=== PATIENT | male | born 1975 | race African-American/Black ===

== ENCOUNTER 2017-11-19 22:39 | Emergency (ER) | payer OTHER ==
[~2017-11-19] VITALS: Ht 180.3 cm; Wt 156.5 kg
[~2017-11-19 22:39] MED LIST: LORADAMED10 MG PO; METO50TA27 PO; OMEP40CA PO; ZANTAC300 MG PO
[2017-11-19 23:31] LABS: PLATELET COUNT 200 K/uL (142-355)
[2017-11-19 23:35] LABS: POTASSIUM 3.4 mmol/L (3.6-5.2); SODIUM 136 mmol/L (136-145)
[2017-11-20 01:28] VITALS: BP 150/87; TEMP 98.2
== END 2017-11-20 01:31 | disposition home or self-care (01) ==
LOC: ED 22:39
PROVIDERS: Specialist
DX: M79.1 Myalgia (principal); R07.89 Other chest pain
CPT/HCPCS: 36415; 80053; 82550; 83880; 84484; 85027; 85379; 85610; 85730; 93005; 96372; 99283; J1885

== ENCOUNTER 2019-01-22 12:15 | Emergency (ER) | payer OTHER ==
[~2019-01-22] VITALS: Ht 180.3 cm; Wt 172.4 kg
[2019-01-22 12:40] LABS: PLATELET COUNT 197 K/uL (142-355)
[2019-01-22 12:51] LABS: POTASSIUM 3.5 mmol/L (3.6-5.2); SODIUM 138 mmol/L (136-145)
[2019-01-22 13:50] VITALS: BP 130/90; TEMP 98.3
== END 2019-01-22 14:01 | disposition home or self-care (01) ==
LOC: ED 12:15
PROVIDERS: Family Medicine
DX: R07.89 Other chest pain (principal); E66.8 Other obesity
CPT/HCPCS: 36415; 80053; 82550; 82553; 83880; 84484; 85027; 85379; 93005; 99284

== ENCOUNTER 2019-02-15 17:39 | Emergency (ER) | payer OTHER ==
[~2019-02-15] VITALS: Ht 180.3 cm; Wt 172.4 kg
[2019-02-15 19:34] LABS: PLATELET COUNT 187 K/uL (142-355)
[2019-02-15 19:44] LABS: POTASSIUM 3.6 mmol/L (3.6-5.2); SODIUM 140 mmol/L (136-145)
[2019-02-15 21:30] VITALS: BP 149/92; TEMP 98.2
== END 2019-02-15 21:48 | disposition home or self-care (01) ==
LOC: ED 17:39
PROVIDERS: Family Medicine
DX: R10.9 Unspecified abdominal pain (principal); R11.0 Nausea; K59.00 Constipation, unspecified
CPT/HCPCS: 36415; 74022; 80053; 82550; 84484; 85027; 93005; 99283

== ENCOUNTER 2019-02-21 20:34 | Emergency (ER) | payer OTHER ==
[~2019-02-21] VITALS: Ht 180.3 cm; Wt 172.4 kg
[2019-02-21 22:00] LABS: PLATELET COUNT 179 K/uL (142-355)
[2019-02-21 22:14] LABS: POTASSIUM 3.8 mmol/L (3.6-5.2); SODIUM 138 mmol/L (136-145)
[2019-02-21 23:05] VITALS: BP 135/82; TEMP 97.7
== END 2019-02-21 23:05 | disposition home or self-care (01) ==
LOC: ED 20:34
PROVIDERS: Emergency Medicine
DX: R07.9 Chest pain, unspecified (principal); E66.01 Morbid (severe) obesity due to excess calories; I45.10 Unspecified right bundle-branch block
CPT/HCPCS: 36415; 80053; 82150; 82550; 83690; 84484; 85027; 93005; 99283

== ENCOUNTER 2019-10-06 11:45 | Outpatient (CLI) | payer OTHER | END 2019-10-06 11:52 | disposition short-term general hospital (02) | LOC: AMB 11:45 | DX: R07.9 Chest pain, unspecified (principal); R11.0 Nausea; R42 Dizziness and giddiness | CPT/HCPCS: A0425; A0427 ==

== ENCOUNTER 2019-10-06 11:50 | Emergency (ER) | payer OTHER ==
[~2019-10-06] VITALS: Ht 180.3 cm; Wt 172.4 kg
[2019-10-06 12:24] LABS: PLATELET COUNT 206 K/uL (142-355)
[2019-10-06 12:42] LABS: POTASSIUM 3.5 mmol/L (3.6-5.2); SODIUM 138 mmol/L (136-145)
[2019-10-06 21:54] VITALS: BP 131/90; TEMP 98.8
== END 2019-10-06 21:54 | disposition home or self-care (01) ==
LOC: ED 11:50
PROVIDERS: Student in an Organized Health Care Education/Training Program
DX: R07.89 Other chest pain (principal); K21.9 Gastro-esophageal reflux disease without esophagitis; E66.01 Morbid (severe) obesity due to excess calories
CPT/HCPCS: 80048; 83735; 83880; 84484; 85027; 85610; 85730; 93005; 96374; 99284; A9540; A9567; J2270

== ENCOUNTER 2019-11-02 19:51 | Emergency (ER) | payer OTHER ==
[~2019-11-02] VITALS: Ht 180.3 cm; Wt 172.4 kg
[2019-11-02 20:23] LABS: PLATELET COUNT 193 K/uL (142-355)
[2019-11-02 20:29] LABS: POTASSIUM 3.3 mmol/L (3.6-5.2); SODIUM 140 mmol/L (136-145)
[2019-11-03 00:55] VITALS: BP 127/73; TEMP 97.8
== END 2019-11-03 00:55 | disposition home or self-care (01) ==
LOC: ED 19:51
PROVIDERS: Emergency Medicine
DX: R07.89 Other chest pain (principal); I45.10 Unspecified right bundle-branch block
CPT/HCPCS: 36415; 80053; 82550; 82553; 84484; 85027; 85379; 93005; 99284

== ENCOUNTER 2019-11-04 12:15 | Emergency (ER) | payer OTHER ==
[~2019-11-04] VITALS: Ht 180.3 cm; Wt 176.9 kg
[2019-11-04 12:23] VITALS: TEMP 98.1
[2019-11-04 13:04] LABS: PLATELET COUNT 187 K/uL (142-355)
[2019-11-04 13:10] LABS: POTASSIUM 3.5 mmol/L (3.6-5.2); SODIUM 139 mmol/L (136-145)
[2019-11-04 16:09] VITALS: BP 123/77
== END 2019-11-04 18:11 | disposition home or self-care (01) ==
LOC: ED 12:15
PROVIDERS: Family Medicine
DX: R07.89 Other chest pain (principal); F41.8 Other specified anxiety disorders; E87.6 Hypokalemia
CPT/HCPCS: 80053; 82550; 84484; 85027; 85610; 85730; 93005; 99284; J2060

== ENCOUNTER 2019-11-08 20:32 | Emergency (ER) | payer OTHER ==
[~2019-11-08] VITALS: Ht 180.3 cm; Wt 176.9 kg
[2019-11-08 21:17] LABS: PLATELET COUNT 205 K/uL (142-355)
[2019-11-08 21:25] LABS: POTASSIUM 3.4 mmol/L (3.6-5.2); SODIUM 139 mmol/L (136-145)
[2019-11-08 22:09] VITALS: BP 154/86; TEMP 97.7
== END 2019-11-08 22:10 | disposition home or self-care (01) ==
LOC: ED 20:32
PROVIDERS: Student in an Organized Health Care Education/Training Program
DX: R07.89 Other chest pain (principal); F41.8 Other specified anxiety disorders
CPT/HCPCS: 36415; 80048; 83735; 84484; 85027; 93005; 96374; 99284; J1885

== ENCOUNTER 2019-11-10 21:41 | Emergency (ER) | payer OTHER ==
[~2019-11-10] VITALS: Ht 180.3 cm; Wt 176.9 kg
[2019-11-10 22:30] VITALS: TEMP 98.1
[2019-11-10 23:15] LABS: PLATELET COUNT 188 K/uL (142-355)
[2019-11-10 23:16] LABS: POTASSIUM 3.6 mmol/L (3.6-5.2); SODIUM 138 mmol/L (136-145)
[2019-11-11 00:17] VITALS: BP 126/80
== END 2019-11-11 00:20 | disposition home or self-care (01) ==
LOC: ED 21:41
PROVIDERS: Emergency Medicine
DX: R07.89 Other chest pain (principal); F41.8 Other specified anxiety disorders
CPT/HCPCS: 36415; 80053; 82550; 83690; 84484; 85027; 93005; 99283

== ENCOUNTER 2019-11-11 13:54 | Observation (INO) | payer OTHER ==
[~2019-11-11] VITALS: Ht 180.3 cm; Wt 176.9 kg
[2019-11-11 14:08] VITALS: BP 151/103; TEMP 97.9
[2019-11-11 14:55] LABS: PLATELET COUNT 212 K/uL (142-355)
[2019-11-11 15:53] LABS: POTASSIUM 3.5 mmol/L (3.6-5.2); SODIUM 136 mmol/L (136-145)
[2019-11-11 20:00] VITALS: BP 144/85; TEMP 98.2
[2019-11-11 20:03] VITALS: BP 146/94; TEMP 97.5; Ht 180.3 cm; Wt 176.9 kg
--- NOTE | 2019-11-11 20:36 | NUR ---
11/11/19 PT ASSESSMENT COMPLETED ALERT ORIENTED.PT STATES HE IS HAVING SOME PRESSURE IN CHEST HE STATED THIS HAS BEEN GOING ON FOR A MONTH OR SO.HE STATES IT COMES AND GOES.EKG OBTAINED SHOWED SINUS RHYTUM.MEDICATIONS GIVEN NITRO PATCH AND METOPROLOL 50 MH GIVEN.PT REFUSED NITRO TABLET.ER PHYSICAN DR. VIGIL NOTIFED OF PATIENT HAVING CHHEST PAIN AND THAT EKG SHOWED SINUS RHYTUM. NO NEW ORDERS RECEIVED.PT GIVEN SOME CRACKERS AND JUICE TOLERATING WELL.CALL LIGHT WITHIN REACH.
[2019-11-12] VITALS: BP 107/57; TEMP 97.6
[2019-11-12 04:00] VITALS: BP 112/68; TEMP 97.8
[2019-11-12 04:42] LABS: PLATELET COUNT 197 K/uL (142-355)
[2019-11-12 05:31] LABS: POTASSIUM 3.9 mmol/L (3.6-5.2)
--- NOTE | 2019-11-12 06:01 | NUR ---
Patient was admitted with Chest Pain and is on a 2 Gm Na Diet plan and is 5'11" at 389 and is a 44 YOM and IBW = 172+/-10% (155-189), kcal for IBW = 2000 x 25, x 30 = 2200, x 35 = 2545, x 40 = 2900, protein needs x .8 to 1.5 = 58 to 109 grams per day and fluis for weight at 389 = 4420 to 5300, BMI = 54 andis higher than the highest stage of obesity and is 226% IBW, and dx. included hypokalemia, hypocalecemia and labs reveal WBC, ALB, D-DIMER, MPV AND ALL ABNORMAL SEE EMR FOR MORE DETAILS, GIVEN 1 DOSE OF NITRO IN ER AND ADMITTED A PATIENT TO THE FLOOR, TACHY SINUS AND DX. INCLUDED DEHYDRATION, GASTRITIS, HTN, MALNOURISHED, MORBID OBESITY, MUSCOLOSKELETAL PAIN, GERD AND ANXIETY. Recommendations: 1-To work with PT to help with movement 2-Healthier food choices and to add NCS High Fiber to 2 gm Na. 3-Encourage HBV Protein Choices which dietary will add to the trays with meals. 4-Food Preferences will be honored 5-Increase fluids as tolerated d/t dehydration
[2019-11-12 08:03] VITALS: BP 109/71; TEMP 97.3
== END 2019-11-12 16:30 | disposition home or self-care (01) ==
LOC: ED 13:54 → MED/SURG 17:00
PROVIDERS: Family Medicine; ADMIT Family Medicine
DX: R07.89 Other chest pain (principal); I10 Essential (primary) hypertension; K21.9 Gastro-esophageal reflux disease without esophagitis; R73.9 Hyperglycemia, unspecified; I49.8 Other specified cardiac arrhythmias; E66.2 Morbid (severe) obesity with alveolar hypoventilation
CPT/HCPCS: 36415; 80053; 80061; 80307; 81000; 82550; 82948; 83036; 83735; 83880; 84443; 84484; 85027; 85379; 93005; 99220; 99284; G0378

== ENCOUNTER 2019-11-12 22:23 | Emergency (ER) | payer OTHER ==
[~2019-11-12] VITALS: Ht 180.3 cm; Wt 176.9 kg
[2019-11-12 22:35] VITALS: BP 129/85; TEMP 98.2
== END 2019-11-12 22:35 | disposition home or self-care (01) ==
LOC: ED 22:23
DX: Z01.30 Encounter for examination of blood pressure without abnormal findings (principal); F17.210 Nicotine dependence, cigarettes, uncomplicated
CPT/HCPCS: 99281

== ENCOUNTER 2019-11-14 11:15 | Emergency (ER) | payer OTHER ==
[~2019-11-14] VITALS: Ht 180.3 cm; Wt 173.7 kg
[2019-11-14 12:37] LABS: PLATELET COUNT 189 K/uL (142-355)
[2019-11-14 12:41] LABS: POTASSIUM 4.1 mmol/L (3.6-5.2); SODIUM 139 mmol/L (136-145)
[2019-11-14 13:01] LABS: PARTIAL THROMBOPLASTIN TIME 26.1 SECONDS (24.5-33.6)
[2019-11-14 15:19] VITALS: BP 120/59; TEMP 97.7
== END 2019-11-14 15:20 | disposition home or self-care (01) ==
LOC: ED 11:15
PROVIDERS: Student in an Organized Health Care Education/Training Program
DX: R07.89 Other chest pain (principal)
CPT/HCPCS: 80048; 83735; 83880; 84484; 85027; 85610; 85730; 93005; 99284

== ENCOUNTER 2019-11-14 19:31 | Observation (INO) | payer OTHER ==
[2019-11-14] VITALS (10 sets, daily range): BP systolic 108–163; BP diastolic 59–91; TEMP 97.7
[~2019-11-14] VITALS: Ht 180.3 cm; Wt 173.3 kg
[2019-11-15] VITALS (8 sets, daily range): BP systolic 126–158; BP diastolic 72–102; TEMP 97.9–98.7; Ht 180.3 cm; Wt 173.3 kg
[2019-11-15 17:26] LABS: PARTIAL THROMBOPLASTIN TIME 28.2 SECONDS (24.5-33.6)
== END 2019-11-15 13:06 | disposition home or self-care (01) ==
LOC: ED 19:31 → MED/SURG 11-15 01:44
PROVIDERS: Family Medicine; ADMIT Emergency Medicine
DX: R07.89 Other chest pain (principal); I10 Essential (primary) hypertension; E66.01 Morbid (severe) obesity due to excess calories; F41.8 Other specified anxiety disorders
CPT/HCPCS: 36415; 80076; 80307; 80320; 80329; 81000; 82550; 83690; 84484; 85610; 85730; 86318; 93005; 99220; 99284; G0378

== ENCOUNTER 2019-12-16 21:37 | Emergency (ER) | payer OTHER ==
[~2019-12-16] VITALS: Ht 180.3 cm; Wt 163.3 kg
[2019-12-16 23:05] LABS: PLATELET COUNT 142 K/uL (142-355)
[2019-12-16 23:12] LABS: POTASSIUM 3.4 mmol/L (3.6-5.2)
[2019-12-17 01:10] VITALS: BP 119/69; TEMP 98.6
== END 2019-12-17 01:10 | disposition home or self-care (01) ==
LOC: ED 21:37
PROVIDERS: Family Medicine
DX: F41.8 Other specified anxiety disorders (principal); E87.6 Hypokalemia; R06.4 Hyperventilation; R00.1 Bradycardia, unspecified
CPT/HCPCS: 36415; 80053; 81000; 85027; 99283

== ENCOUNTER 2019-12-31 20:09 | Emergency (ER) | payer OTHER ==
[~2019-12-31] VITALS: Ht 180.3 cm; Wt 145.2 kg
[2019-12-31] MEDS ORDERED: TERAZOSIN2 MG PO (20:30)
[2019-12-31] MEDS ORDERED: ALPR0.5T24 PO (20:30)
[2019-12-31 21:11] LABS: PLATELET COUNT 120 K/uL (142-355)
[2019-12-31 21:19] LABS: POTASSIUM 3.3 mmol/L (3.6-5.2); SODIUM 138 mmol/L (136-145)
[2019-12-31 21:58] VITALS: BP 128/80; TEMP 97.5
== END 2019-12-31 21:58 | disposition home or self-care (01) ==
LOC: ED 20:09
PROVIDERS: Emergency Medicine
DX: E66.01 Morbid (severe) obesity due to excess calories (principal); R07.89 Other chest pain; F41.8 Other specified anxiety disorders
CPT/HCPCS: 80053; 82550; 84484; 85027; 93005; 99283

== ENCOUNTER 2020-05-06 11:45 | Emergency (ER) | payer OTHER ==
[~2020-05-06] VITALS: Ht 180.3 cm; Wt 171.2 kg
[~2020-05-06 11:45] MED LIST changes: +ALPR0.5T24 PO; +TERAZOSIN2 MG PO
[2020-05-06 12:36] LABS: PLATELET COUNT 173 K/uL (142-355)
[2020-05-06 12:45] LABS: POTASSIUM 3.8 mmol/L (3.6-5.2); SODIUM 140 mmol/L (136-145)
[2020-05-06 12:53] LABS: PARTIAL THROMBOPLASTIN TIME 25.9 SECONDS (24.5-33.6)
[2020-05-06 13:11] VITALS: BP 158/87; TEMP 98.4
== END 2020-05-06 13:24 | disposition home or self-care (01) ==
LOC: ED 11:45
PROVIDERS: Hospitalist
DX: R07.89 Other chest pain (principal); Z03.818 Encounter for observation for suspected exposure to other biological agents ruled out
CPT/HCPCS: 36415; 80053; 82550; 83880; 84484; 85027; 85610; 85730; 87502; 87635; 87651; 93005; 96374; 99284; G2023; J1885; J2405; U00003

== ENCOUNTER 2020-05-19 13:07 | Emergency (ER) | payer OTHER ==
[~2020-05-19] VITALS: Ht 180.3 cm; Wt 171.0 kg
[2020-05-19 13:23] VITALS: TEMP 99.1
[2020-05-19 15:03] LABS: POTASSIUM 3.8 mmol/L (3.6-5.2); SODIUM 140 mmol/L (136-145)
[2020-05-19 16:18] VITALS: BP 161/87
== END 2020-05-19 16:18 | disposition home or self-care (01) ==
LOC: ED 13:07
PROVIDERS: General Practice
DX: R00.2 Palpitations (principal)
CPT/HCPCS: 36415; 80048; 84484; 93005; 99283

== ENCOUNTER 2020-06-05 14:09 | Emergency (ER) | payer OTHER ==
[~2020-06-05] VITALS: Ht 180.3 cm; Wt 171.0 kg
[2020-06-05 14:15] VITALS: TEMP 98.9
[2020-06-05 15:29] LABS: PLATELET COUNT 175 K/uL (142-355)
[2020-06-05 15:35] LABS: POTASSIUM 3.9 mmol/L (3.6-5.2); SODIUM 137 mmol/L (136-145)
[2020-06-05 18:17] VITALS: BP 138/78
== END 2020-06-05 18:17 | disposition home or self-care (01) ==
LOC: ED 14:09
PROVIDERS: Family Medicine
DX: K21.9 Gastro-esophageal reflux disease without esophagitis (principal); R07.89 Other chest pain; M94.0 Chondrocostal junction syndrome [Tietze]
CPT/HCPCS: 80053; 81000; 82550; 82728; 84484; 85027; 93005; 96374; 99284; J3490

== ENCOUNTER 2020-06-13 13:14 | Emergency (ER) | payer OTHER ==
[~2020-06-13] VITALS: Ht 180.3 cm; Wt 171.0 kg
[2020-06-13 13:57] LABS: PLATELET COUNT 175 K/uL (142-355)
[2020-06-13 14:17] LABS: POTASSIUM 3.6 mmol/L (3.6-5.2); SODIUM 136 mmol/L (136-145)
[2020-06-13 17:47] VITALS: BP 146/93; TEMP 98.9
== END 2020-06-13 17:47 | disposition home or self-care (01) ==
LOC: ED 13:14
PROVIDERS: Emergency Medicine
DX: R07.89 Other chest pain (principal)
CPT/HCPCS: 80053; 82550; 82553; 84484; 85027; 85379; 93005; 99284

== ENCOUNTER 2020-06-15 08:25 | Outpatient (CLI) | payer OTHER | END 2020-06-15 23:00 | disposition home or self-care (01) | LOC: NM 08:25 | DX: R10.11 Right upper quadrant pain (principal); R10.84 Generalized abdominal pain; R11.0 Nausea; R11.10 Vomiting, unspecified; F33.1 Major depressive disorder, recurrent, moderate; F41.1 Generalized anxiety disorder | CPT/HCPCS: A9537 ==

== ENCOUNTER 2020-06-18 12:15 | Emergency (ER) | payer OTHER ==
[~2020-06-18] VITALS: Ht 180.3 cm; Wt 163.3 kg
[2020-06-18 13:06] LABS: PLATELET COUNT 159 K/uL (142-355)
[2020-06-18 13:09] LABS: POTASSIUM 3.7 mmol/L (3.6-5.2); SODIUM 139 mmol/L (136-145)
[2020-06-18 13:50] VITALS: BP 153/89; TEMP 98.7
== END 2020-06-18 13:50 | disposition home or self-care (01) ==
LOC: ED 12:15
PROVIDERS: Family Medicine
DX: I10 Essential (primary) hypertension (principal)
CPT/HCPCS: 80053; 82550; 82553; 83605; 83880; 84484; 85027; 93005; 99284

== ENCOUNTER 2020-07-24 19:25 | Emergency (ER) | payer OTHER ==
[~2020-07-24] VITALS: Ht 180.3 cm; Wt 158.8 kg
[2020-07-24 20:36] LABS: PLATELET COUNT 146 K/uL (142-355)
[2020-07-24 20:49] LABS: POTASSIUM 3.2 mmol/L (3.6-5.2); SODIUM 132 mmol/L (136-145)
[2020-07-25] MEDS ORDERED: DICYCLOMINE HYD10 MG PO (02:53)
[2020-07-25] MEDS ORDERED: POT CHLORIDE10 MEQ PO (02:55)
[2020-07-25] MEDS ORDERED: CYCL10TA35 PO (02:55)
[2020-07-25] MEDS ORDERED: CLOP75TA2 PO (02:56)
[2020-07-25] MEDS ORDERED: PAXIL20 MG PO (02:56)
[2020-07-25 03:30] VITALS: BP 118/69; TEMP 97.9
== END 2020-07-25 06:40 | disposition home or self-care (01) ==
LOC: ED 19:25
PROVIDERS: Emergency Medicine Emergency Medical Services
DX: R00.2 Palpitations (principal); E87.6 Hypokalemia; F32.9 Major depressive disorder, single episode, unspecified
CPT/HCPCS: 36415; 80053; 80307; 80320; 80329; 81000; 84443; 84484; 85027; 93005; 96360; 96375; 99285; J2060

== ENCOUNTER 2020-07-30 14:22 | Observation (INO) | payer OTHER ==
[~2020-07-30] VITALS: Ht 180.3 cm; Wt 158.3 kg
[2020-07-30] VITALS (9 sets, daily range): BP systolic 134–199; BP diastolic 76–109; TEMP 97.5–99.1; Ht 180.3 cm; Wt 158.3 kg
[~2020-07-30 14:22] MED LIST changes: +CLOP75TA2 PO; +CYCL10TA35 PO; +DICYCLOMINE HYD10 MG PO; +PAXIL20 MG PO; +POT CHLORIDE10 MEQ PO
[2020-07-30 15:05] LABS: PLATELET COUNT 152 K/uL (142-355)
[2020-07-30 15:18] LABS: POTASSIUM 3.7 mmol/L (3.6-5.2); SODIUM 139 mmol/L (136-145)
[2020-07-30 15:28] LABS: PARTIAL THROMBOPLASTIN TIME 25.4 SECONDS (24.5-33.6)
[2020-07-31 00:32] VITALS: BP 131/80; TEMP 97.9
[2020-07-31 04:23] VITALS: BP 128/80; TEMP 98.2
[2020-07-31 08:00] VITALS: BP 135/84; TEMP 97.7
[2020-07-31] MEDS ORDERED: METO25TA2 PO (09:59)
[2020-07-31] MEDS ORDERED: LEXAPRO10 MG PO (10:03)
[2020-07-31] MEDS ORDERED: PANTOPRAZOLE 40MG TA PO (10:04)
[2020-07-31 12:00] VITALS: BP 140/71
[2020-07-31] MEDS ORDERED: METO-837 PO ×2 (13:09→16:40)
[2020-07-31] MEDS ORDERED: CARAFATE1 GM PO (14:40)
[2020-07-31] MEDS ORDERED: DICYCLOMINE HYD10 MG PO (14:44)
[2020-07-31] MEDS ORDERED: POTASSIUM CHLO10 ME1 PO (14:45)
[2020-07-31 16:00] VITALS: BP 154/88; TEMP 98.3
[2020-07-31] MEDS ORDERED: OMEPRAZOLE DR40 MG PO (16:37)
[2020-07-31] MEDS ORDERED: PEPCID40 MG PO (16:39)
== END 2020-07-31 20:33 | disposition home or self-care (01) ==
LOC: ED 14:22 → MED/SURG 16:20
PROVIDERS: Hospitalist; ADMIT Internal Medicine
DX: R07.89 Other chest pain (principal); K21.9 Gastro-esophageal reflux disease without esophagitis; E66.01 Morbid (severe) obesity due to excess calories; I10 Essential (primary) hypertension; F41.8 Other specified anxiety disorders
CPT/HCPCS: 36415; 80053; 82550; 83880; 84484; 85027; 85610; 85730; 93005; 99220; 99284; G0378

== ENCOUNTER 2021-03-07 22:19 | Emergency (ER) | payer OTHER ==
[~2021-03-07] VITALS: Ht 180.3 cm; Wt 162.8 kg
[~2021-03-07 22:19] MED LIST changes: +CARAFATE1 GM PO; +LEXAPRO10 MG PO; +METO-837 PO; +METO25TA2 PO; +OMEPRAZOLE DR40 MG PO; +PANTOPRAZOLE 40MG TA PO; +PEPCID40 MG PO; +POTASSIUM CHLO10 ME1 PO
[2021-03-07 23:23] LABS: PLATELET COUNT 175 K/uL (142-355)
[2021-03-07 23:32] LABS: POTASSIUM 3.7 mmol/L (3.6-5.2); SODIUM 140 mmol/L (136-145)
[2021-03-08 00:22] VITALS: BP 128/67; TEMP 98.7
== END 2021-03-08 00:22 | disposition home or self-care (01) ==
LOC: ED 22:19
PROVIDERS: Hospitalist
DX: I16.0 Hypertensive urgency (principal)
CPT/HCPCS: 36415; 80053; 82550; 83880; 84484; 85027; 85610; 85730; 93005; 99283

== ENCOUNTER 2021-03-11 11:33 | Emergency (ER) | payer OTHER ==
[~2021-03-11] VITALS: Ht 180.3 cm; Wt 162.8 kg
[2021-03-11 11:37] VITALS: TEMP 96.4
[2021-03-11 12:57] LABS: PLATELET COUNT 196 K/uL (142-355)
[2021-03-11 13:06] LABS: POTASSIUM 3.6 mmol/L (3.6-5.2); SODIUM 138 mmol/L (136-145)
[2021-03-11 13:49] VITALS: BP 142/89
== END 2021-03-11 13:49 | disposition home or self-care (01) ==
LOC: ED 11:33
PROVIDERS: Emergency Medicine Emergency Medical Services
DX: B34.9 Viral infection, unspecified (principal)
CPT/HCPCS: 80053; 84484; 85027; 93005; 96360; 99284

== ENCOUNTER 2021-06-23 16:37 | Emergency (ER) | payer OTHER ==
[~2021-06-23] VITALS: Ht 180.3 cm; Wt 156.5 kg
[2021-06-23 18:32] VITALS: BP 150/32; TEMP 98
== END 2021-06-23 18:32 | disposition home or self-care (01) ==
LOC: ED 16:37
DX: K08.89 Other specified disorders of teeth and supporting structures (principal); K04.7 Periapical abscess without sinus
CPT/HCPCS: 96372; 99283; J0696; J1885

== ENCOUNTER 2021-08-21 13:01 | Emergency (ER) | payer OTHER ==
[~2021-08-21] VITALS: Ht 180.3 cm; Wt 158.8 kg
[2021-08-21 13:03] VITALS: TEMP 97.7
[2021-08-21 14:08] LABS: PLATELET COUNT 172 K/uL (142-355)
[2021-08-21 14:25] LABS: POTASSIUM 3.5 mmol/L (3.6-5.2)
[2021-08-21 14:56] VITALS: BP 151/90
== END 2021-08-21 14:59 | disposition home or self-care (01) ==
LOC: ED 13:01
PROVIDERS: Family Medicine
DX: R00.2 Palpitations (principal)
CPT/HCPCS: 80053; 82550; 82553; 84484; 85027; 93005; 99284

== ENCOUNTER 2022-03-24 08:21 | Emergency (ER) | payer OTHER ==
[~2022-03-24] VITALS: Ht 180.3 cm; Wt 158.8 kg
[2022-03-24] MEDS ORDERED: PREDNISONE20 MG PO (10:15)
[2022-03-24] MEDS ORDERED: ORPHENADRINE100 MG PO (10:15)
[2022-03-24] MEDS ORDERED: IBU600 MG PO (10:15)
[2022-03-24 10:31] VITALS: BP 122/80; TEMP 98.7
== END 2022-03-24 10:31 | disposition home or self-care (01) ==
LOC: ED 08:21
DX: S39.012A Strain of muscle, fascia and tendon of lower back, initial encounter (principal); M51.36 Other intervertebral disc degeneration, lumbar region; X50.9XXA Other and unspecified overexertion or strenuous movements or postures, initial encounter; Y92.89 Other specified places as the place of occurrence of the external cause
CPT/HCPCS: 80307; 81000; 96372; 99283; J2270; J2360; J2550

== ENCOUNTER 2022-05-21 08:20 | Emergency (ER) | payer OTHER ==
[~2022-05-21] VITALS: Ht 180.3 cm; Wt 158.8 kg
[2022-05-21 08:20] VITALS: TEMP 97.41
[~2022-05-21 08:20] MED LIST changes: +IBU600 MG PO; +ORPHENADRINE100 MG PO; +PREDNISONE20 MG PO
[2022-05-21 08:57] LABS: PLATELET COUNT 162 K/uL (142-355)
[2022-05-21 09:09] LABS: POTASSIUM 3.3 mmol/L (3.6-5.2)
[2022-05-21 09:55] VITALS: BP 162/92
== END 2022-05-21 10:00 | disposition home or self-care (01) ==
LOC: ED 08:20
PROVIDERS: Emergency Medicine Emergency Medical Services
DX: R00.2 Palpitations (principal); T67.8XXA Other effects of heat and light, initial encounter; E87.6 Hypokalemia; X30.XXXA Exposure to excessive natural heat, initial encounter; Y92.63 Factory as the place of occurrence of the external cause
CPT/HCPCS: 36415; 80053; 83735; 84484; 85027; 93005; 96360; 96361; 99284

== ENCOUNTER 2022-06-01 20:28 | Observation (INO) | payer OTHER ==
[~2022-06-01] VITALS: Ht 180.3 cm; Wt 162.4 kg
[2022-06-01 20:30] VITALS: BP 156/85; TEMP 97.8
[2022-06-01 21:08] LABS: PLATELET COUNT 172 K/uL (142-355)
[2022-06-01 21:30] VITALS: BP 159/90
[2022-06-01 21:42] LABS: POTASSIUM 3.2 mmol/L (3.6-5.2)
[2022-06-01 22:30] VITALS: BP 128/72
[2022-06-01 23:00] VITALS: BP 113/74
[2022-06-02 01:32] VITALS: BP 140/89; TEMP 98.4; Ht 180.3 cm; Wt 162.4 kg
[2022-06-02 04:00] VITALS: BP 109/61; TEMP 97.7
[2022-06-02 08:00] VITALS: BP 141/84; TEMP 97.4
[2022-06-02 12:00] VITALS: BP 116/59; TEMP 97.8
[2022-06-02 16:00] VITALS: BP 142/82; TEMP 97.3
== END 2022-06-02 16:57 | disposition home or self-care (01) ==
LOC: ED 20:28 → MED/SURG 22:13
PROVIDERS: ADMIT Hospitalist; ATTEND Internal Medicine
DX: R07.89 Other chest pain (principal); E66.01 Morbid (severe) obesity due to excess calories; I10 Essential (primary) hypertension; K21.9 Gastro-esophageal reflux disease without esophagitis; E87.6 Hypokalemia; Z68.42 Body mass index [BMI] 45.0-49.9, adult
CPT/HCPCS: 36415; 80053; 82550; 83880; 84484; 85027; 85610; 85730; 87635; 93005; 96372; 96375; 99220; 99283; G0378; J1650; J2270; J2405; U0003

== ENCOUNTER 2022-06-05 09:09 | Emergency (ER) | payer OTHER ==
[~2022-06-05] VITALS: Ht 180.3 cm; Wt 162.4 kg
[2022-06-05 09:10] VITALS: TEMP 97.7
[2022-06-05 09:33] LABS: PLATELET COUNT 179 K/uL (142-355)
[2022-06-05 09:38] LABS: POTASSIUM 3.6 mmol/L (3.6-5.2)
[2022-06-05 10:31] VITALS: BP 132/84
== END 2022-06-05 10:32 | disposition home or self-care (01) ==
LOC: ED 09:09
PROVIDERS: Emergency Medicine
DX: S29.011A Strain of muscle and tendon of front wall of thorax, initial encounter (principal); E66.8 Other obesity; X58.XXXA Exposure to other specified factors, initial encounter; Y92.89 Other specified places as the place of occurrence of the external cause
CPT/HCPCS: 80048; 84484; 85027; 93005; 99283

== ENCOUNTER 2022-07-09 10:34 | Emergency (ER) | payer OTHER ==
[~2022-07-09] VITALS: Ht 180.3 cm; Wt 162.4 kg
[2022-07-09 10:43] VITALS: BP 147/95; TEMP 99.2
[2022-07-09 11:50] LABS: PLATELET COUNT 165 K/uL (142-355)
[2022-07-09 11:54] LABS: POTASSIUM 3.9 mmol/L (3.6-5.2)
== END 2022-07-09 14:36 | disposition home or self-care (01) ==
LOC: ED 10:34
PROVIDERS: Emergency Medicine
DX: R53.1 Weakness (principal)
CPT/HCPCS: 80053; 81002; 84443; 85027; 87502; 96360; 99284

== ENCOUNTER 2022-10-01 19:08 | Emergency (ER) | payer OTHER ==
[~2022-10-01] VITALS: Ht 180.3 cm; Wt 154.2 kg
[2022-10-01 23:40] VITALS: BP 151/88; TEMP 98.1
== END 2022-10-01 23:45 | disposition home or self-care (01) ==
LOC: ED 19:08
DX: K59.09 Other constipation (principal)
CPT/HCPCS: 81000; 82948; 99283

== ENCOUNTER 2023-03-04 16:10 | Emergency (ER) | payer OTHER ==
[~2023-03-04] VITALS: Ht 180.3 cm; Wt 158.3 kg
[2023-03-04 16:12] VITALS: TEMP 98.2
[2023-03-04 17:02] LABS: PLATELET COUNT 156 K/uL (142-355)
[2023-03-04 17:09] LABS: POTASSIUM 3.7 mmol/L (3.6-5.2)
[2023-03-04 18:40] VITALS: BP 156/97
== END 2023-03-04 18:45 | disposition home or self-care (01) ==
LOC: ED 16:10
PROVIDERS: Emergency Medicine Emergency Medical Services
DX: R42 Dizziness and giddiness (principal); I10 Essential (primary) hypertension; E78.00 Pure hypercholesterolemia, unspecified; E66.01 Morbid (severe) obesity due to excess calories
CPT/HCPCS: 80053; 80307; 81002; 84484; 85027; 93005; 99284